=== PATIENT | male | born 1985 | race Two or more races ===

== ENCOUNTER 2024-08-08 17:23 | Emergency (ER) | payer OTHER, MEDICAID ==
[~2024-08-08] VITALS: Ht 185.4 cm; Wt 96.9 kg
[2024-08-08 18:45] LABS: Basophils # (auto) 0 10 ^3/uL (0-0.2); Basophils % (auto) 0.3 % (0.0-2.0); Eosinophils # (auto) 0 10 ^3/uL (0-0.8); Eosinophils % (auto) 0.1 % (0.0-7.0); Hematocrit 39.7 % (41.0-53.0); Hemoglobin 13.4 g/dL (13.5-17.5); Lymphocytes # (auto) 0.2 10 ^3/uL (0.4-5.4); Lymphocytes % (auto) 3.6 % (10.0-50.0); Mean Corpuscular Hemoglobin 34.1 pg (28.0-32.0); Mean Corpuscular Hgb Conc. 33.7 g/dL (32.0-36.0); Mean Corpuscular Volume 101.1 fL (80.0-100.0); Monocytes # (auto) 0.3 10 ^3/uL (0-1.3); Monocytes % (auto) 4.3 % (0.0-12.0); Neutrophils # (auto) 6.2 10 ^3/uL (1.6-8.6); Neutrophils % (auto) 91.7 % (37.0-80.0); Platelet Count (auto) 107 10^3/uL (140-450); Red Blood Cells 3.93 10^6/uL (4.5-5.90); Red Cell Distribution Width 15.9 % (11.8-14.3); White Blood Cell 6.7 10^3/uL (4.4-10.8)
[2024-08-08 18:59] LABS: INR 1.25 (0.9-1.15); Partial Thromboplastin Time 27.3 SEC (24.5-34.5)
[2024-08-08 19:03] LABS: Alanine Aminotransferase 24 U/L (7-40); Albumin 3.8 g/dL (3.2-4.8); Alkaline Phosphatase 118 U/L (46-116); Anion Gap 9 (5-15); Aspartate Aminotransferase 52 U/L (13-40); BUN/Creatinine Ratio 11.6 (10.0-20.0); Blood Urea Nitrogen 10 mg/dL (9-23); Calcium 8.8 mg/dL (8.7-10.4); Carbon Dioxide 22 mmol/L (20-31); Chloride 109 mmol/L (98-107); Glucose 134 mg/dL (74-106); Lipase 44 U/L (12-53); Potassium 4.1 mmol/L (3.5-5.1); Sodium 140 mmol/L (136-145); Total Protein 7.5 g/dL (5.7-8.2)
[2024-08-08] MEDS: PANTOPRAZOLE 40 MG/10 ML VIAL INJ IV ONE (19:55)
[2024-08-08] MEDS: SODIUM CHLORIDE 0.9% 500 ML IV ONE (19:56)
[2024-08-08] MEDS: ACETAMINOPHEN 325 MG TAB PO ONE (20:20)
[2024-08-08] MEDS: levoFLOXacin 500MG 100 ML IV ONE (20:20)
[2024-08-08 20:28] VITALS: PULSE 128; RESP 18; O2SAT 96
[2024-08-08] MEDS: IBUPROFEN 800 MG TAB PO ONE (21:26)
[2024-08-08 21:45] VITALS: PULSE 128; RESP 18; O2SAT 96
[2024-08-08 22:33] VITALS: BP 138/88; PULSE 108; RESP 18; O2SAT 98
[2024-08-08 22:37] VITALS: TEMP 99.3
== END 2024-08-08 22:56 | disposition left against medical advice (07) ==
LOC: ER 17:30
DX: K56.609 Unspecified intestinal obstruction, unspecified as to partial versus complete obstruction (principal); K80.20 Calculus of gallbladder without cholecystitis without obstruction; R10.84 Generalized abdominal pain; K92.2 Gastrointestinal hemorrhage, unspecified; R05.9 Cough, unspecified
CPT/HCPCS: 36415; 74176; 80053; 83605; 83690; 85025; 85610; 85730; 87040; 96365; 96375; 99285; J1956; J2470; J7040